=== PATIENT | male | born 1945 | race Caucasian/White ===

== ENCOUNTER 2019-01-23 09:44 | Day surgery (SDC) | payer MEDICARE, OTHER ==
[2019-01-23] VITALS (13 sets, daily range): BP systolic 140–179; BP diastolic 59–102; PULSE 55–78; RESP 15–27; Ht 165.1 cm; Wt 91.7 kg
[~2019-01-23] VITALS: Ht 165.1 cm; Wt 91.7 kg
[~2019-01-23 09:44] MED LIST: DIAZEPAM 5 MG TAB PO ONE; DIPHENHYDRAMINE 50 MG CAP PO ONE; FAMOTIDINE 20 MG TAB PO ONE; SOD CHLORIDE 0.45% 1,000 ML IV SCH
[2019-01-23] MEDS ORDERED: ASPI81TA52 PO (10:27)
[2019-01-23] MEDS ORDERED: ATOR10TA65 PO (10:27)
[2019-01-23] MEDS ORDERED: LISI40TA3 PO (10:28)
[2019-01-23] MEDS ORDERED: LIDOCAINE 1% (MDV) 20 ML INJ ONE (11:13)
[2019-01-23] MEDS ORDERED: FENTAnyl 50 MCG/ML VIAL ONE (11:13)
[2019-01-23] MEDS ORDERED: VERAPAMIL 5 MG INJ ONE (11:13)
[2019-01-23] MEDS ORDERED: HEPARIN 1000 UNITS/ML 10 ML INJ ONE (11:13)
[2019-01-23] MEDS ORDERED: MIDAZOLAM 1 MG/ML 2 ML INJ ONE (11:13)
[2019-01-23] MEDS ORDERED: NITROGLYCERIN (IC) 100 MCG/ML INJ ONE (11:14)
[2019-01-23] MEDS ORDERED: SOD CHLORIDE 0.9% 1,000 ML IV SCH (12:34)
--- NOTE | 2019-01-23 12:34 | SIPON ---
Date/Time of Note Date/Time of Note DATE: 01/23/19 TIME: 12:33 Operative Report Preoperative Diagnosis 1. 2.abnl mpi Postoperative Diagnosis 1.nonobstructive cad 2. Operation/Procedure Performed 1.[facility] 2.C Surgeon see signature line department assistant Oumar Anesthesia: moderate sedation Estimated blood loss: minimal Transfusion Required none Specimen none Grafts/Implants none Complications none SARATH MONTEZ January 23, 2019 12:33
[2019-01-23] MEDS ORDERED: AL HYDROX/MG HYDROX/SIMETH 30 ML CUP PO PRN (13:00)
[2019-01-23] MEDS ORDERED: morphine 2 MG INJ IV PRN (13:00)
[2019-01-23] MEDS ORDERED: ACETAMINOPHEN 325 MG TAB PO PRN (13:00)
[2019-01-23] MEDS ORDERED: ONDANSETRON 4 MG INJ IV PRN (13:00)
--- NOTE | 2019-01-23 20:14 | CARRPT ---
DATE OF PROCEDURE: 01/23/2019 TYPE OF PROCEDURES: 1. Left heart catheterization. 2. Coronary angiography. 3. Right heart catheterization. 4. Femoral angiography. 5. Moderate conscious sedation. ATTENDING PHYSICIAN: Sarath Lorenz MD REFERRING PHYSICIAN: Dr. Chen. INDICATION: Abnormal cardiac stress test, aortic stenosis, syncope. TYPE OF ANESTHESIA: Conscious and local. BRIEF HISTORY: Mr. Isabel is a 73-year-old male with history of hypertension, dyslipidemia, w ho presented status post syncopal episode and cardiac workup including cardiac stress test and 2D ech o. A 2D echo revealed preserved EF with possible severe and cardiac stress test with positive isc hemia in the lateral distribution. Given these findings, the patient was referred for left and right heart catheterization to assess possibility of significant coronary artery disease and valvular diso rders lending to syncopal episode. DESCRIPTION OF PROCEDURE: After informed consent was obtained, the patient was brought to the [facility] cardiac catheterization lab where his right groin was prepped and draped in st erile fashion. A 2% lidocaine was infiltrated into right groin in order to achieve adequate anesthes ia. Using modified Seldinger technique, the right femoral vein was cannulated and a 7-Green[place]ic venous sheath was placed. Subsequently using modified Seldinger technique, the patient's right femoral gerda ry was cannulated and a 6-Green[place]ic arterial sheath was placed. At this time, a 7-Green[place]ic [place] cath eter was passed up the IVC into the RA, RV and 0.025 wire in order to get into the PA and pulmonary c apillary wedge positions with pressures obtained in each subsequent chamber. Cardiac output was dete rmined by thermal dilution and [place] catheter was removed. Subsequently at this time, a JL4 cath eter was used to cannulate the left main coronary ostium. With contrast injection, multiple views of the left coronary arterial system were obtained. JL4 was removed a guidewire and JR4 was used to ca nnulate the right coronary arterial ostium. With contrast injection, multiple views of the right cor onary arterial system were obtained Subsequently at this time, a 6-Green[place]ic pigtail with some difficul ty and not much, I was able to cross into the LV. This was exchanged for a [place] dual-lumen pigta il catheter and simultaneous pressures were obtained across the aortic valve. It was pullback to fur ther assess for any significant gradient and removed. The patient underwent femoral angiography reve aling the sheath to be placed in the common femoral artery, but patient had a somewhat just like an a ccessory profunda femoral artery just above this, so I decided to use manual pressure. Subsequently, the patient's sheath was removed. Manual pressure was held. Optimal hemostasis was achieved. This completed the procedure. There were no noted complications. FINDINGS: 1. Right heart catheterization: RA 6, RV 37/1. PA 34/7, pulmonary capillary wedge of 5. Cardiac o utput of 3.9, cardiac index of 1.96, aortic valve area of 0.7 with mean gradient of 40.5, peak to pea k of 36. 2. Left heart catheterization: Left main: No significant focal stenoses. Circumflex proximally is 3.5 mm vessel with no significant focal stenoses. It is a dominant vessel and therefore gives off a left-sided PDA 2 mm, no significant focal stenoses. The circumflex distally has a distal branching obtuse marginal, 3 mm vessel with 20% stenosis in mid portion. Remainder of the vessel is free from significant focal stenoses. The LAD proximally is a 3 mm vessel and the mid portion of the LAD has m ild luminal irregularities of 10% to 20% that becomes a very small caliber vessel just around the ape x, no significant focal stenoses. Proximal branching diagonal is 2 mm, no significant focal stenoses . Right coronary artery proximally is a 2 mm vessel with small nondominant vessel with no significan t focal stenoses. Left ventricular end diastolic pressure is 13. TOTAL FLUOROSCOPY TIME: 15.6 minutes. TOTAL CONTRAST: 60 mL. IMPRESSION: 1. Essentially normal coronary arteries with very mild nonobstructive coronary artery disease. 2. High normal to mildly elevated right heart pressures. 3. Low normal cardiac output and cardiac index. 4. Severe aortic stenosis by valve area and gradient. RECOMMENDATIONS: In light of findings time: 1. The patient is maintained on maximal medical therapy. 2. The patient will be discharged later this afternoon. 3. The patient will be referred back to the primary heel boom operator's office with probable need for golden gical referral for aortic valve replacement. Dictated By: SARATH HOOVER/SHANTELLE Conf#: [id number] [facility]#: [id number]
--- NOTE | 2019-01-26 09:35 | RADRPT ---
Vent Rate: 64 bpm RR Interval: 944 msec CO Interval: 158 msec QRS Duration: 94 msec QT Interval: 392 msec QTC Interval: 403 msec P-R-T Commerce: 39 - 62 - 34 degrees Sinus rhythm...normal P axis, V-rate 50- 99 Consider left ventricular hypertrophy...(S V1/V2+R V5/V6) >3.50mV ST elevation, consider anterior injury...ST >0.15mV, V1-V5 Electronically Signed By: Raghu Razo
== END 2019-01-23 17:50 | disposition home or self-care (01) ==
LOC: SDS 09:44
PROVIDERS: ATTEND Internal Medicine
DX: I25.10 Atherosclerotic heart disease of native coronary artery without angina pectoris (principal); R94.39 Abnormal result of other cardiovascular function study; I10 Essential (primary) hypertension; E78.5 Hyperlipidemia, unspecified
CPT/HCPCS: 71045; 80048; 80061; 85025; 85610; 85730; 93005; 93460; C1769; C1887; C1894; J1644; J2250; J3010